=== PATIENT | male | born 1980 | race Caucasian/White ===

== ENCOUNTER 2016-11-18 21:41 | Emergency (ER) | payer MEDICAID ==
--- NOTE | 2016-11-18 21:50 | EDPHY ---
H & P Time Seen by Provider: 11/18/16 21:50 HPI/ROS: CHIEF COMPLAINT: HISTORY OF PRESENT ILLNESS: [No fever, chills, chest pain, shortness of breath, palpitations, vomiting, diarrhea, urinary complaints, headache, lightheadedness. ] REVIEW OF SYSTEMS: Aside from elements discussed in the HPI, a comprehensive 10-point review of systems was reviewed and is negative. PAST MEDICAL HISTORY: SOCIAL HISTORY: PHYSICAL EXAM: GENERAL APPEARANCE: [ ]. FOCUSED EXAM OF [ ]: [ ]. NEUROVASCULAR EXAM: Good capillary refill, normal motor exam, normal neurologic exam. VITAL SIGNS: Reviewed by me GENERAL: Well-developed, well-nourished, resting comfortably in no respiratory distress. HEENT: Atraumatic. Eyes: No icterus, no injection. Mouth: moist mucous membranes. No erythema or lesions. Neck: supple with no adenopathy. LUNGS: Clear to auscultation bilaterally, no wheezes, rhonchi or rales. CARDIAC: Regular rate and rhythm, no rubs, murmurs or gallops. ABDOMEN: Soft, nontender, nondistended, bowel sounds normal. BACK: No CVA tenderness. EXTREMITIES: No trauma. No edema. Range of motion is normal throughout. NEURO: Alert and oriented, grossly nonfocal. SKIN: Warm and dry, no rash. PSYCHIATRIC: Normal mentation, no agitation. Portions of this note were transcribed by a ophthalmic medical technologist. I personally performed a history, physical exam, medical decision making, and confirmed accuracy of information the transcribed note. Constitutional: Initial Vital Signs Temperature (C) 36.4 C 11/18/16 21:48 Heart Rate 82 11/18/16 21:48 Respiratory Rate 18 11/18/16 21:48 Blood Pressure 128/92 H 11/18/16 21:48 O2 Sat (%) 96 11/18/16 21:48 O2 Delivery Mode Room Air Allergies/Adverse Reactions: No Known Allergies Allergy (Unverified 11/18/16 21:51) Home Medications: Medication Instructions Recorded Wellbutrin Xl 11/18/16 Departure - Departure Condition: Good Referrals: Patient,NotPresent [Primary Care Provider] - As per Instructions Report Scribed for: Sandra Reyes Report Scribed by: Lucy Decker Date of Report: 11/18/16 Time of Report: 21:50
[2016-11-18 21:51] VITALS: BP 128/92; PULSE 82; RESP 18; TEMP 97.5; O2SAT 96
--- NOTE | 2016-11-18 22:14 | EDPHY ---
H & P Stated Complaint: Feet Wounds Time Seen by Provider: 11/18/16 21:50 HPI/ROS: HPI The patient presents with bilateral foot pain for the last 2 days which was exacerbated after walking in the snow in sandals. He feels a burning pain in both of his feet which is constant and moderate in severity. He has had similar symptoms before. He is homeless, arrived here today from [place], and is looking to stay at the [facility]. He has not been treating his feet with anything in particular. He has not had any fevers or chills, nausea or vomiting. 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 REVIEW OF SYSTEMS Constitutional: No fever, no chills. Eyes: No discharge. ENT: No sore throat. Cardiovascular: No chest pain, no palpitations. Respiratory: No cough, no shortness of breath. Gastrointestinal: No abdominal pain, no vomiting. Genitourinary: No hematuria. Musculoskeletal: No back pain. Skin: No rashes. Neurological: No headache. PMHx: Depression on Wellbutrin Soc Hx: Tobacco use, marijuana use, alcohol use, amphetamine use, homeless PHYSICAL General Appearance: Alert, no distress Eyes: Pupils equal and round no pallor or injection ENT, Mouth: Mucous membranes moist Respiratory: There are no retractions, lungs are clear to auscultation Cardiovascular: Regular rate and rhythm Gastrointestinal: Abdomen is soft and non-tender, no masses, bowel sounds normal Neurological: A&O, moves all extremities Skin: Warm and dry, no rashes Musculoskeletal: Neck is supple non tender Extremities: Both feet with plantar surfaces with erythema, some cracks in the skin, web spaces are somewhat denuded, there is no warmth, areas of fluctuance Psychiatric: Patient is oriented X 3, there is no agitation Source: Patient Exam Limitations: No limitations - Personal History Current Tetanus Diphtheria and Acellular Pertussis (TDAP): Yes - Medical/Surgical History Hx Asthma: No Hx Chronic Respiratory Disease: No Hx Diabetes: No Hx Cardiac Disease: No Hx Renal Disease: No Hx Cirrhosis: No Hx Alcoholism: No Hx HIV/AIDS: No Hx Splenectomy or Spleen Trauma: No Other PMH: depression, suicide attempt - Social History Smoking Status: Current every day smoker Constitutional: Initial Vital Signs Temperature (C) 36.4 C 11/18/16 21:48 Heart Rate 82 11/18/16 21:48 Respiratory Rate 18 11/18/16 21:48 Blood Pressure 128/92 H 11/18/16 21:48 O2 Sat (%) 96 11/18/16 21:48 O2 Delivery Mode Room Air Allergies/Adverse Reactions: No Known Allergies Allergy (Unverified 11/18/16 21:51) Home Medications: Medication Instructions Recorded Clotrimazole 1% 1 amelia TP BID #1 cream 11/18/16 Wellbutrin Xl 11/18/16 Medical Decision Making Differential Diagnosis: This is a 36-year-old homeless man who presents with bilateral foot pain, brought in by ambulance. This was exacerbated after walking a long distance in the snow with sandals on. Differential diagnosis includes tinea pedis, trench foot, less likely cellulitis or abscess. There is no trauma to suggest any fracture or sprain. In the emergency room, we gave the patient clean socks. I have encouraged him to find a pair of close toed shoes to wear while the weather is cold and snowy. I will discharge him with clotrimazole. Departure - Departure Disposition: Home, Routine, Self-Care Clinical Impression: Foot pain, bilateral Tinea pedis Qualifiers: Laterality: bilateral Qualified Code(s): B35.3 - Tinea pedis Condition: Good Instructions: Athlete's Foot (ED) Additional Instructions: Please do your best to keep your feet clean and dry. Change your socks daily. Look for clean comfortable shoes to walk-in. Referrals: [facility],. [Clinic] - As per Instructions Prescriptions: Clotrimazole 1% 1 amelia TP BID #1 cream
== END 2016-11-18 22:32 | disposition home or self-care (01) ==
LOC: EDUNIT#
DX: M79.671 Pain in right foot (principal); M79.672 Pain in left foot; B35.3 Tinea pedis; F17.200 Nicotine dependence, unspecified, uncomplicated